=== PATIENT | female | born 1980 | race Caucasian/White ===

== ENCOUNTER 2020-08-25 14:14 | Emergency (ER) | payer OTHER, SELFPAY ==
--- NOTE | ~2020-08-25 | XR_ITS ---
EXAMINATION: XR foot LT min 3V EXAM DATE: 08/25/2020 15:00 INDICATION: Left foot pain s/p fall down stairs 1 week ago. TECHNIQUE: Left foot dorsoplantar, lateral and oblique projections obtained and reviewed. There is n o prior study for comparison. FINDINGS: Left metatarsal bones unremarkable. There are no acute fractures or dislocations identifi ed. There is no subcutaneous gas. The soft tissue is unremarkable. There are no radiopaque foreig n bodies. IMPRESSION: No acute osseous findings. Reviewed, dictated and finalized at location B. IMPRESSION: No acute osseous findings.
[2020-08-25 14:43] VITALS: BP 117/68; PULSE 88; RESP 16; TEMP 36.4; O2SAT 99
--- NOTE | 2020-08-25 15:09 | ED.LOWEXIN ---
HPI - Extremity Injury (Lower) General Chief Complaint: Extremity Injury, Lower Stated Complaint: left foot pain Time Seen by Provider: 08/25/20 14:51 Source: patient and RN notes reviewed Mode of arrival: ambulatory Limitations: no limitations History of Present Illness HPI Narrative: Patient presents today complaining of left foot pain since falling down 2 steps 1 week ago off a porch. States that that time she rolled her ankle, which has improved, but the foot pain persists. She does report some intermittent tingling in her toes, but denies numbness. She currently rates her pain 8/10 and has been taking ibuprofen and applying ice without relief. MD complaint: foot injury Related Data Home Medications Medication Instructions Recorded Confirmed No Home Medications 08/25/20 08/25/20 Allergies Allergy/AdvReac Type Severity Reaction Status Date / Time amoxicillin Allergy Hives Verified 08/25/20 14:46 Review of Systems Review of Systems: Narrative: CONSTITUTIONAL: Denies body aches, fever, chills, or sweats. EYES: Denies visual changes, redness, or discharge. ENT: Denies rhinorrhea, congestion, sore throat, or otalgia. CARDIOVASCULAR: Denies chest pain, palpitations, or edema. RESPIRATORY: Denies cough or dyspnea. GASTROINTESTINAL: Denies abdominal pain, nausea, vomiting, or diarrhea. GENITOURINARY: Denies dysuria or hematuria. SKIN: Denies rash, itching, or wounds. MUSCULOSKELETAL: Denies back pain, or myalgia.+ Left foot pain NEUROLOGIC: Denies headache, numbness, tingling, or weakness. PSYCH: Denies depression or anxiety. PMFSH Comments At time of signature, I have reviewed and agree with nursing past medical, surgical, social and family history unless otherwise noted. Please see nursing chart for further information. There is no relevant family history pertinent to the presenting complaint Exam Narrative: Exam Narrative: GENERAL: Well-appearing, well-nourished, and in no acute distress. HEAD: Normocephalic, atraumatic. EYES: EOMI. No redness or drainage. Conjunctivae normal. ENT: Mucous membranes pink and moist. NECK: Normal AROM. CHEST: No respiratory distress. EXTREMITIES: Left foot: Tenderness to the proximal third and fourth metatarsals without edema, ecchymosis, or erythema. No other tenderness throughout the foot or ankle. Distal sensation intact. Capillary refill normal. Pedal pulse normal. Full range of motion of toes and ankle. SKIN: Warm, dry, no rash. Capillary refill normal. Normal skin turgor. NEURO: No focal deficits. Alert and oriented x3. Gait steady. PSYCH: Normal affect. No signs of depression or anxiety. Course Vital Signs Vital signs: Vital Signs Temperature 97.6 F 08/25/20 14:43 Pulse Rate 88 08/25/20 14:43 Respiratory Rate 16 08/25/20 14:43 Blood Pressure 117/68 08/25/20 14:43 Pulse Oximetry 99 08/25/20 14:43 Temperature 97.6 F 08/25/20 14:43 Pulse Rate 88 08/25/20 14:43 Respiratory Rate 16 08/25/20 14:43 Blood Pressure 117/68 08/25/20 14:43 Pulse Oximetry 99 08/25/20 14:43 Reviewed MDM - Extremity Injury (Lower) Differential Diagnosis Differential diagnosis: Likely ankle sprain and strain and other (Foot fracture, foot sprain, contusion) Imaging Data Radiologist's impression: ITS Impressions Foot X-Ray 08/25/20 15:02 IMPRESSION: No acute osseous findings. Critical Care Time Critical Care Time Critical Care Time: No Discharge Plan Discharge Clinical Impression: Sprain of foot, left Qualifiers: Encounter type: initial encounter Qualified Code(s): S93.602A - Unspecified sprain of left foot, initial encounter Patient Disposition: Home, Self-Care Condition: Stable Instructions: Foot Sprain (ED) Additional Instructions: Your x-ray is negative for fracture today. Continue to ice and elevate your foot. 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
== END 2020-08-25 15:14 | disposition home or self-care (01) ==
PROVIDERS: Emergency Provider Nurse Practitioner
DX: S93.602A Unspecified sprain of left foot, initial encounter (principal); W10.9XXA Fall (on) (from) unspecified stairs and steps, initial encounter
CPT/HCPCS: 73630; 99203; G0463

== ENCOUNTER 2020-09-05 13:27 | Emergency (ER) | payer OTHER, SELFPAY ==
[2020-09-05 13:46] VITALS: BP 113/75; PULSE 84; RESP 18; TEMP 36.5; O2SAT 99
--- NOTE | 2020-09-05 13:47 | ED.URI ---
HPI - URI/Sore Throat General Chief Complaint: Upper Respiratory Infection Stated Complaint: Runny nose,Sore throat Time Seen by Provider: 09/05/20 13:47 Source: patient Mode of arrival: ambulatory Limitations: no limitations History of Present Illness HPI Narrative: July Niño is a 40 yo female with pmh of migraines of sore throat runny nose since August 17. She has had nasal congestion runny nose, scratchy sore throat, no fever. States pain is 3-4/10. Related Data Home Medications Medication Instructions Recorded Confirmed divalproex 125 mg PO DAILY 09/05/20 09/05/20 spironolactone 100 mg PO DAILY 09/05/20 09/05/20 Allergies Allergy/AdvReac Type Severity Reaction Status Date / Time amoxicillin Allergy Hives Verified 09/05/20 13:40 cefdinir Allergy Swelling Verified 09/05/20 13:54 of Lip/Tongue/Throat topiramate [From Topamax] Allergy Rash Verified 09/05/20 13:54 Review of Systems Review of Systems: Narrative: CONSTITUTIONAL: Denies fever, chills, sweats. EYES: Denies visual changes, redness, discharge. ENT: Has rhinorrhea, has congestion, has sore throat, otalgia. CARDIOVASCULAR: Denies chest pain, palpitations, edema. RESPIRATORY: Denies dyspnea, wheezing, cough GASTROINTESTINAL: Denies abdominal pain, nausea, vomiting, diarrhea. GENITOURINARY: Denies dysuria, hematuria, abnormal discharge SKIN: Denies rash or itching. NEUROLOGIC: Denies numbness, or focal weakness. PSYCHIATRIC: Denies anxiety or depression. [facility] Past Medical History Medical History (Updated 09/05/20 @ 14:27 by Marli Camejo CNP) Migraines Family History Family History Mother Diabetes mellitus Social History Social History (Updated 09/05/20 @ 14:20 by Marli Camejo CNP) Smoking status: Never smoker Alcohol intake: current Comments At time of signature, I agree with nursing past medical, surgical, social and family history. There is no relevant family history pertinent to the presenting complaint. Exam Narrative: Exam Narrative: GENERAL: This is a well-nourished, well-developed patient, in mild distress. HEAD: normocephalic, atraumatic. EYES: Sclera clear/white. Vision is grossly intact. EARS: External ears normal, auditory canals erythema and without drainage, TMs bulging without perforation. Hearing grossly intact. NOSE: External nose normal without nasal discharge, nares with redness, has rhinorrhea. THROAT: Mucous membranes moist, posterior pharynx erythema NECK: Neck supple, non-tender CARDIOVASCULAR: Regular rate and rhythm without murmurs, gallops, or rubs. RESPIRATORY: Clear to auscultation. Breath sounds equal bilaterally. No wheezes, rales, or rhonchi. GASTROINTESTINAL: Abdomen soft, non-tender, SKIN: warm, intact with no suspicious lesions or rash, good texture and turgor. NEURO: awake, alert, and oriented to person, place and time. There were no obvious focal neurologic abnormalities. Steady gait EXTREMITIES: Normal range of motion. BACK: Nontender without deformity Course Course Emergency Course: Patient here for runny nose, scratchy eyes, earache bilaterally Vital Signs Vital signs: Vital Signs Temperature 97.7 F 09/05/20 13:46 Pulse Rate 84 09/05/20 13:46 Respiratory Rate 18 09/05/20 13:46 Blood Pressure 113/75 09/05/20 13:46 Pulse Oximetry 99 09/05/20 13:46 Temperature 97.7 F 09/05/20 13:46 Pulse Rate 84 09/05/20 13:46 Respiratory Rate 18 09/05/20 13:46 Blood Pressure 113/75 09/05/20 13:46 Pulse Oximetry 99 09/05/20 13:46 MDM - URI/Sore Throat Differential Diagnosis Differential diagnosis: Likely upper respiratory infection, otitis media, viral infection, bronchitis, pharyngitis and other Lab Data Labs: Strep Screen Presumptive Negative *(Reference Range: Negative)* Critical Care Time Critical Care Time Critical Care
== END 2020-09-05 14:31 | disposition home or self-care (01) ==
PROVIDERS: Emergency Provider Nurse Practitioner
DX: J06.9 Acute upper respiratory infection, unspecified (principal); J01.20 Acute ethmoidal sinusitis, unspecified
CPT/HCPCS: 87081; 87880; 99213; G0463

== ENCOUNTER 2023-04-15 18:41 | Emergency (ER) | payer OTHER, SELFPAY ==
[2023-04-15 18:49] VITALS: BP 112/69; PULSE 80; RESP 16; TEMP 37; O2SAT 98
--- NOTE | 2023-04-15 18:50 | ED.GENADULT ---
HPI - General Adult General Chief complaint: Extremity Problem,Nontraumatic Stated complaint: Right Hand Pain Time Seen by Provider: 04/15/23 18:50 Source: patient Mode of arrival: ambulatory Limitations: no limitations History of Present Illness HPI narrative: 43 yo F presents with c/o pain to R hand since yesterday evevning. Denies injury. Worse today. very painful when making first. has not taken any OTC medication to treat pain. Denies repetitive movements. 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 all systems reviewed and negative except as noted above. Related Data Home Medications Medication Instructions Recorded Confirmed spironolactone 100 mg tablet 100 mg PO DAILY 09/05/20 04/15/23 Allergies Allergy/AdvReac Type Severity Reaction Status Date / Time amoxicillin Allergy Hives Verified 04/15/23 18:43 cefdinir Allergy Swelling Verified 04/15/23 18:43 of Lip/Tongue/Throat topiramate [From Topamax] Allergy Rash Verified 04/15/23 18:43 Review of Systems Review of Systems: CONSTITUTIONAL: Denies fever, chills, or sweats. EYES: Denies visual changes, redness, or discharge. ENT: Denies rhinorrhea, congestion, sore throat, or otalgia. CARDIOVASCULAR: Denies chest pain, palpitations, or edema. RESPIRATORY: Denies cough or dyspnea. GASTROINTESTINAL: Denies abdominal pain, nausea, vomiting, or diarrhea. GENITOURINARY: Denies dysuria or hematuria. SKIN: Denies rash or itching. MUSCULOSKELETAL: Denies back pain, joint pain, or myalgia. Reports pain to right hand and wrist Worse with movement. NEUROLOGIC: Denies headache, numbness, or weakness. PSYCHIATRIC: Denies anxiety or depression. All other systems reviewed are negative, except as documented in HPI. [facility] Past Medical History Medical History (Updated 04/15/23 @ 18:57 by July Emmanuel NP) Migraines Family History Family History Mother Diabetes mellitus Social History Social History (Updated 09/05/20 @ 14:20 by Marli Camejo, TAN) Smoking status: Never smoker Alcohol intake: current Comments At time of signature, agree with nursing past medical, surgical, social and family history. There is no relevant family history pertinent to the presenting complaint. Exam Narrative: GENERAL: This is a well-nourished, well-developed patient, in no apparent distress. HEAD: normocephalic, atraumatic. EYES: PERRL. Sclera clear/white. Vision is grossly intact. EARS: External ears normal NOSE: External nose normal . NECK: Neck supple, non-tender without lymphadenopathy, masses or thyromegaly. CARDIOVASCULAR: Regular rate and rhythm without murmurs, gallops, or rubs. RESPIRATORY: Clear to auscultation. Breath sounds equal bilaterally. No wheezes, rales, or rhonchi. SKIN: warm, Dry, intact with no suspicious lesions or rash, good texture and turgor. NEURO: awake, alert, and oriented to person, place and time. There were no obvious focal neurologic abnormalities. EXTREMITIES: mild swelling noted to R hand with generalized tenderness on palpation to palm of hand. no warm or erythema noted. ROM normal but painful. Course Course Level of Care: Express Care Visit Vital Signs Vital signs: Reviewed Medical Decision Making MDM Narrative Medical decision making narrative: Patient is aware of diagnosis, understands and agrees to treatment plan. Anticipatory guidance given. Patient agrees to follow-up as directed and is aware of reasons to seek care at the emergency department. Portions of this record may have been created with voice recognition software no injury. no signs of infection or gout. will treat with NSAIDS and steroids for possible tendonitis. recommend follow up with PCP. Discharge Plan Discharge Clinical Impression: Right hand tendonitis Patient Disposition: Home, Self-Care Condition: Stable Instructions: Tendinitis (
== END 2023-04-15 19:00 | disposition home or self-care (01) ==
PROVIDERS: Emergency Provider Nurse Practitioner Family
DX: M77.8 Other enthesopathies, not elsewhere classified (principal)
CPT/HCPCS: 99213; G0463

== ENCOUNTER 2023-07-19 16:41 | Emergency (ER) | payer OTHER, SELFPAY ==
--- NOTE | ~2023-07-19 | XR_ITS ---
EXAMINATION: XR chest 2V DATE: 07/19/2023 18:24 INDICATION: Cough. TECHNIQUE: Frontal and lateral views of the chest were obtained. COMPARISON: None. FINDINGS: There is no pneumonia, pleural effusion, or pneumothorax. The heart size is normal. IMPRESSION: 1. No acute cardiopulmonary disease. Reviewed, dictated and finalized at location E.
[2023-07-19 17:12] VITALS: BP 118/71; PULSE 84; RESP 16; TEMP 36.8; O2SAT 100
--- NOTE | 2023-07-19 18:14 | ED.GENADULT ---
HPI - General Adult General Chief complaint: Upper Respiratory Infection Stated complaint: cough,congestion,LAZCANO Source: patient Mode of arrival: ambulatory Limitations: no limitations History of Present Illness HPI narrative: Patient presents for evaluation of sick symptoms. She experienced a fever and cough 3 weeks ago. Cough has persisted since that time. She now has some sinus congestion. No nausea, vomiting or diarrhea. She has tried some OTC cough and cold medications including dayquil and nyquil. Symptoms persist. She does not smoke. Her sons are being evaluated for similar symptoms. Related Data Home Medications Medication Instructions Recorded Confirmed spironolactone 100 mg tablet 100 mg PO DAILY 09/05/20 07/19/23 Allergies Allergy/AdvReac Type Severity Reaction Status Date / Time cefdinir Allergy Severe Swelling Verified 07/19/23 17:38 of Lip/Tongue/Throat amoxicillin Allergy Intermediate Hives Verified 07/19/23 17:38 topiramate [From Topamax] Allergy Intermediate Rash Verified 07/19/23 17:38 Review of Systems Review of Systems: CONSTITUTIONAL: Reports fever recently, none currently. Denies chills, or sweats. EYES: Denies visual changes, redness, or discharge. ENT: Reports sinus congestion. Denies rhinorrhea, sore throat, or otalgia. CARDIOVASCULAR: Denies chest pain, palpitations, or edema. RESPIRATORY: Reports cough. Denies SOB. GASTROINTESTINAL: Denies abdominal pain, nausea, vomiting, or diarrhea. GENITOURINARY: Denies dysuria or hematuria. SKIN: Denies rash or itching. MUSCULOSKELETAL: Denies back pain, joint pain, or myalgia. NEUROLOGIC: Denies headache, numbness, dizziness, or weakness. PSYCHIATRIC: Denies anxiety or depression. [facility] Past Medical History Medical History Migraines Surgical History Surgical History History of salpingectomy Family History Family History Mother Diabetes mellitus Social History Social History Smoking status: Never smoker Alcohol intake: current Substance use: never Living arrangements: with family Gender identity (if verbalized by the patient): Female Sexual Orientation (if Verbalized by the Patient): Straight or Heterosexual Spiritual care concerns: No Exam Narrative: GENERAL: Well-appearing, well-nourished, and in no acute distress. HEAD: Normocephalic, atraumatic. EYES: PERRLA and EOMI. ENT: Nares clear, no rhinorrhea or epistaxis. Mucous membranes moist. Oropharynx without tonsillar hypertrophy exudate or other lesions. Bilateral TMs pearly sampson nonbulging NECK: Supple. No adenopathy or masses. No carotid bruits or JVD CHEST: Cough present on exam. No adventitious lung sounds. HEART: Regular rate and rhythm. No murmur heard. Normal peripheral pulses. ABDOMEN: Soft, nontender, nondistended, normal active bowel sounds. EXTREMITIES: Normal range of motion. No edema. SKIN: Warm, dry, no rash. NEURO: No focal deficits. Alert and oriented x3. PSYCH: Normal mood and affect. Course Course Emergency Course: This is a 43-year-old female who presented for evaluation of a cough. Chest x-ray was normal. Through shared decision making opted to forego flu and COVID testing due to duration of time in which she has been symptomatic. Oxygen saturations 100% on room air. No evidence of labored breathing. Will dc with tessalon. Follow up with primary provider. Go to the ER for worsening symptoms. Pt in agreement with plan of care. Level of Care: Express Care Visit Vital Signs Vital signs: Vital Signs Temperature 36.8 C 07/19/23 17:12 Pulse Rate 84 07/19/23 17:12 Respiratory Rate 16 07/19/23 17:12 Blood Pressure 118/71 07/19/23 17:12 Pulse Oximetry 100
== END 2023-07-19 19:20 | disposition home or self-care (01) ==
PROVIDERS: Emergency Provider Nurse Practitioner
DX: B34.9 Viral infection, unspecified (principal)
CPT/HCPCS: 71046; 99213; G0463